=== PATIENT | female | born 1970 | race Caucasian/White ===

== ENCOUNTER 2023-06-17 16:53 | Emergency (ER) | payer BC, SELFPAY ==
[2023-06-17 17:02] VITALS: BP 126/84; PULSE 80; RESP 16; TEMP 36; O2SAT 99; BMI 29.1
--- NOTE | 2023-06-17 17:26 | ED_ITS ---
HPI - General Adult General Date Seen: 06/17/23 Chief complaint: Fall/Minor Trauma Stated complaint: Fell, jaw bruising Time Seen by Provider: 06/17/23 17:25 History of Present Illness HPI narrative: 52-year-old female presenting to the ER today for jaw pain and facial injuries. She actually fell while sitting in a chair 4 days ago, last Friday. She was sitting on some steps when she got up to turn when she lost her balance. She fell forward and hit her chin against the concrete on the steps. She has had bruising under her chin a little bit of bruising in her mouth. Since the fall she feels like her teeth have been lining up differently than normal and has pain in her left jaw should he into her left ear. She has bruising on the underside of her chin. She does not take any blood thinners. She has no other injuries. She not did not injure her neck. No headache. No blurry vision. She has had persistent pain, in particular in her left TMJ in front of her ear. No diffuse headache. No confusion. No vomiting. No neck pain. She does not t avni any blood thinners Related Data Home Medications Medication Instructions Recorded Confirmed No Known Home Medications 06/17/23 06/17/23 Allergies Allergy/AdvReac Type Severity Reaction Status Date / Time Sulfa (Sulfonamide Allergy Hives Verified 06/17/23 17:08 Antibiotics) [facility] Social History Smoking Status: Current every day smoker Exam Narrative: Exam Narrative: Constitutional: Appears well-developed and well-nourished. Alert. Conversant. Non toxic. HENT: Head: No depressed skull fracture, Raccoon Eyes, Knapp's sign, or hemotympanum. Face normal. TMs normal. Nose: Nose normal. Mouth/Throat: Oral mucosa is clear and moist. no trismus. Pharynx normal. Tonsils symmetric. No tonsillar enlargement, erythema, or exudate. No obvious dental malocclusion. No intraoral lacerations. No intraoral bruising. She does have bruising on the left mentum and left lateral mandibular body. No definite deformity or crepitus. She is tender over the left mandibular condyle and TMJ without crepitus. She has pain increased by opening her jaw. Right ear: Mastoid, pinna, canal are normal. TM normal Left ear: Mastoid, pinna, canal, are normal. TM normal Eyes: Conjunctivae normal. EOM normal. Pupils equal, round, and reactive to light. No scleral icterus. Neck: Normal range of motion. Neck supple. No tracheal deviation present. No posterior midline tenderness. Cardiovascular: Normal rate, regular rhythm. No gallop. No friction rub. No murmur heard. Symmetric radial artery pulses Pulmonary/Chest: Effort normal. No stridor. No respiratory distress. No wheezes. No rales. No rhonchi . Musculoskeletal: RUE: Normal range of motion. No tenderness. No deformity LUE: Normal range of motion. No tenderness. No deformity RLE: Normal range of motion. No edema. No tenderness. No deformity LLE: Normal range of motion. No edema. No tenderness. No deformity Lymph: No cervical adenopathy. Neurological: Mental status normal. Attention normal. Alert and oriented x3. GCS 15. Memory normal. Speech fluent. Cognition normal. Cranial Nerves intact II-XII except I did not formally test gag or visual acuity. EOMI. Palate elevates symmetrically and tongue protrudes in the midline. Strength: 5/5 trapezius on the right and left 5/5 deltoid on the right and left 5/5 biceps on the right and left 5/5 triceps on the right and left 5/5 manager risk on the right and left 5/5 thumb opposition on the right and le ft 5/5 finger abduction on the right and le ft 5/5 hip flexors (L3) on the right and le ft 5/5 quadriceps (L4) on the right and lef t 5/5 tibialis anterior on the right and l eft 5/5 EHL (L5) on the right and left 5/5 gastrocnemius (S1) on the right and left 5/5 hamstring on the right and left Sensation intact to light touch in both upper extremities (C4-T1) Sensation intact to light touch in Both lower extremities (L4-S1). coordination normal. Gait normal. Skin: Skin is warm and dry. No rash noted. No pallor. Normal capillary refill. Psychiatric: Normal mood. Normal affect. Const: Vital Signs, click to edit/add: Vital Signs - 24 hr 06/17/23 17:02 Temperature 96.8 F L Pulse Rate [Pulse Oximeter] 80 Respiratory Rate 16 Blood Pressure [Ri ght Upper Arm] 126/84 Pulse Oximetry 99 Oxygen Delivery Me thod Room Air Course Vital Signs Vital signs: Initial Vital Signs Temperature 96.8 F L 06/17/23 17:02 Temperature Source Temporal Artery Scan 06/17/23 17:02 Pulse Rate 80 06/17/23 17:02 Pulse Rhythm Regular 06/17/23 17:02 Pulse Strength 3+ Normal 06/17/23 17:02 Respiratory Rate 16 06/17/23 17:02 Blood Pressure 126/84 06/17/23 17:02 Blood Pressure Mean 98 06/17/23 17:02 Blood Pressure Position Sitting 06/17/23 17:02 Pulse Oximetry 99 06/17/23 17:02 Oxygen Delivery Method Room Air 06/17/23 17:02 Vital Signs Temperature 96.8 F L 06/17/23 17:02 Pulse Rate 80 06/17/23 17:02 Respiratory Rate 16 06/17/23 17:02 Blood Pressure 126/84 06/17/23 17:02 Pulse Oximetry 99 06/17/23 17:02 Oxygen Delivery Method Room Air 06/17/23 17:02 Temperature 96.8 F L 06/17/23 17:02 Pulse Rate 80 06/17/23 17:02 Respiratory Rate 16 06/17/23 17:02 Blood Pressure 126/84 06/17/23 17:02 Pulse Oximetry 99 06/17/23 17:02 Oxygen Delivery Method Room Air 06/17/23 17:02 Medical Decision Making MDM Narrative Medical decision making narrative: Very pleasant 52-year-old female presenting to the ER today for lower jaw pain and left TMJ pain ongoing for 4 days after a mechanical ground level fall. Patient denies any concern for assault or abuse. With blunt trauma to the head we did obtain head CT which is fortunately negative for any sign of intracranial hemorrhage, cerebral edema, mass effect. She is otherwise neurologically intact. Main concern was for possible facial and mandibular and TMJ injury such as mandibular fracture, TMJ subluxation, temporal bone fracture. Maxillofacial CT is obtained fortunately is negative for any acute abnormality. At this point the exact cause of her pain is unclear. Suspect probably due to TMJ trauma and subluxation that occurred at the time of injury. She feels like her back teeth are slightly male occluding. I would recommend close outpatient follow-up with her dentist for further evaluation. At this point no evidence for any fracture of the mandible on the CT. Patient her are comfortable plan for discharge. Recommended ice, soft diet, [id number] analgesics as needed. Precautions for return to the ER reviewed and need for dental and primary care follow-up reviewed. Patient agreeable to plan. Imaging Data CT facial bones: Attestation: I have reviewed the pertinent imaging results. Radiologist's impression: IMPRESSION: 1. No acute fracture. 2. Mucosal thickening in the maxillary sinuses. 3. Minimal right mastoid effusion. CT scan - head: Attestation: I have reviewed the pertinent imaging results. Radiologist's impression: IMPRESSION: No acute intracranial findings. Discharge Plan Discharge Clinical Impression: Arthralgia of left temporomandibular joint, Jaw pain Patient Disposition: Home, Self-Care Condition: Stable Instructions: Facial Contusion (ED) Additional Instructions: We have good news. At this time your CT scans do not show any signs of broken bone, jaw dislocation, or dental fracture. I suspect your pain is probably due to an injury to your temporomandibular joint. For now we can treat this by sticking to clear liquids and very soft foods. Years Tylenol or ibuprofen if needed for pain. Please follow-up with your dentist to recheck your injured teeth within the next 5-7 days. If you have worsening pain or swelling in your face, or any concerns, please come back to the ER or see your doctor right away. Prescriptions: No Action No Known Home Medications Follow Up/Referrals: Candi Downing PA-C [Primary Care Provider] - Stand Alone Forms: [facility] [employer] Info Instructions
--- NOTE | 2023-06-17 17:43 | CT_ITS ---
Patient: TILA RODRIGUEZ Facility:?[facility] Patient ID:?[id number] Site Patient ID:?[id number]. Site :?[id number] Study:?CT-Facial WO-06/17/2023 6:33:15 PM Ordering Physician:LULU Final Report: INDICATION: Fall, blunt force, jaw pain. COMPARISON: None. TECHNIQUE: CT of the facial bones without IV contrast. Coronal and sagittal reconstructions. FINDINGS: No acute fracture identified. No significant soft tissue swelling. Mucosal thickening in the inferior aspect of both maxillary sinuses. The remainder of the paranasal sinuses are clear. No air-fluid levels. No bony hyperostosis or areas of bone destruction. The nasal septum is midline. Opacification of a few right inferior mastoid air cells. The left mastoid air cells are clear. The mandible is intact and the temporomandibular joints are anatomically aligned. No periapical lucencies about the teeth. Visualized intracranial contents are unremarkable. Orbits and extraocular muscles are symmetric. The imaged cervical spine is negative. IMPRESSION: 1. No acute fracture. 2. Mucosal thickening in the maxillary sinuses. 3. Minimal right mastoid effusion. Please note that all CT scans at this facility use dose modulation, iterative reconstruction, and/or weight-based dosing when appropriate to reduce radiation dose to as low as reasonably achievable. Dictated by Aleena Zhang MD @ 06/17/2023 7:04:39 PM Signed by:?Aleena Zhang MD @06/17/2023 7:04:39 PM (Electronic Signature)
--- NOTE | 2023-06-17 17:43 | CT_ITS ---
Patient: TILA RODRIGUEZ Facility:?[facility] Patient ID:?[id number] Site Patient ID:?[id number]. Site :?[id number] Study:?CT-Head WO-06/17/2023 6:32:40 PM Ordering Physician:LULU Final Report: INDICATION: Fall, blunt force, jaw pain. COMPARISON: None. TECHNIQUE: CT of the head without IV contrast. Coronal and sagittal reconstructions. FINDINGS: No intracranial hemorrhage, mass effect, or evidence of acute infarct. No midline shift. No abnormal extra-axial fluid collections. Normal caliber ventricular system. Orbits and extraocular muscles are symmetric. The visualized paranasal sinuses and left mastoid air cells are clear. Opacification of a few right inferior mastoid air cells. Soft tissues are unremarkable. No acute fracture identified. IMPRESSION: No acute intracranial findings. Please note that all CT scans at this facility use dose modulation, iterative reconstruction, and/or weight-based dosing when appropriate to reduce radiation dose to as low as reasonably achievable. Dictated by Aleena Zhang MD @ 06/17/2023 6:59:27 PM Signed by:?Aleena Zhang MD @06/17/2023 6:59:27 PM (Electronic Signature)
== END 2023-06-17 19:51 | disposition home or self-care (01) ==
PROVIDERS: Emergency Provider Emergency Medicine; PCP Physician Assistant Medical
DX: M26.622 Arthralgia of left temporomandibular joint (principal)
CPT/HCPCS: 70450; 70486; 99283; 99285

== ENCOUNTER 2023-06-24 21:48 | Emergency (ER) | payer BC, SELFPAY ==
[2023-06-24 21:59] VITALS: BP 139/103; PULSE 70; RESP 16; TEMP 36.3; O2SAT 95
--- NOTE | 2023-06-24 22:35 | PC.NURSE ---
patient DC accompanied by , DC instructions reviewed with patient and . no further questions about DC instructions. all belongings sent with patient
--- NOTE | 2023-06-24 22:42 | ED.DENTAL ---
HPI - Dental/Oral General Date Seen: 06/24/23 Chief complaint: Dental/Oral/Mouth Injury/Pain Stated complaint: Dental Pain -needs stronger pain medication Time Seen by Provider: 06/24/23 22:07 Source: patient Mode of arrival: ambulatory Limitations: no limitations History of Present Illness HPI Narrative: Patient is a 52-year-old female who began having pain in a right upper molar last night. Today she went to the dentist and was diagnosed with a fracture of the tooth and a root canal was recommended. She has an appointment with an account general manager but that one happen for two weeks. She has been taking Tylenol and ibuprofen but in very small doses. The pain is severe to the point where she is unable to sleep. Related Data Previous Rx's Medication Instructions Recorded oxycodone 5 mg tablet 2.5 - 5 mg (0.5 - 1 x 5 mg) PO Q6H 06/24/23 PRN pain #10 tabs Allergies Allergy/AdvReac Type Severity Reaction Status Date / Time Sulfa (Sulfonamide Allergy Hives Verified 06/17/23 17:08 Antibiotics) Review of Systems Narrative: Review of systems is outlined above otherwise noted to be negative. PFSH PFSH Social History Smoking Status: Current every day smoker Non-prescribed substance use: denies use Exam Narrative: Exam Narrative: Vitals noted. Her teeth are generally in fairly good repair. She has a crack of her upper posterior right back molar. No mood gingival swelling or redness. No purulence. No other teeth they are tender to percussion. Const: Vital Signs, click to edit/add: Vital Signs - 24 hr 06/24/23 21:59 Temperature 97.3 F L Pulse Rate [Pulse Oximeter] 70 Respiratory Rate 16 Blood Pressure [Ri ght Upper Arm] 139/103 H Pulse Oximetry 95 Oxygen Delivery Me thod Room Air Course Course ED Course: Patient seen examined. We discussed proper doses of Tylenol and ibuprofen for adults, she was taking in adequate doses. A few tablets of oxycodone is sent to the [employer] machine. Vital Signs Vital signs: Initial Vital Signs Temperature 97.3 F L 06/24/23 21:59 Temperature Source Temporal Artery Scan 06/24/23 21:59 Pulse Rate 70 06/24/23 21:59 Respiratory Rate 16 06/24/23 21:59 Blood Pressure 139/103 H 06/24/23 21:59 Blood Pressure Mean 115 H 06/24/23 21:59 Blood Pressure Position Sitting 06/24/23 21:59 Pulse Oximetry 95 06/24/23 21:59 Oxygen Delivery Method Room Air 06/24/23 21:59 Vital Signs Temperature 97.3 F L 06/24/23 21:59 Pulse Rate 70 06/24/23 21:59 Respiratory Rate 16 06/24/23 21:59 Blood Pressure 139/103 H 06/24/23 21:59 Pulse Oximetry 95 06/24/23 21:59 Oxygen Delivery Method Room Air 06/24/23 21:59 Temperature 97.3 F L 06/24/23 21:59 Pulse Rate 70 06/24/23 21:59 Respiratory Rate 16 06/24/23 21:59 Blood Pressure 139/103 H 06/24/23 21:59 Pulse Oximetry 95 06/24/23 21:59 Oxygen Delivery Method Room Air 06/24/23 21:59 Discharge Plan Discharge Clinical Impression: Fracture of tooth Patient Disposition: Home, Self-Care Condition: Unchanged Additional Instructions: Tylenol 1000 mg every 6 hours as needed for pain. Ibuprofen 800 mg every 8 hours as needed for pain. Oxycodone 2.5-5 mg every 6 hours as needed for refractory pain. Follow-up with the Cnc Applications Engineer as scheduled. Prescriptions: New oxycodone 5 mg tablet 2.5 - 5 mg PO Q6H PRN (Reason: pain) Qty: 10 0RF Follow Up/Referrals: Candi Downing PA-C [Primary Care Provider] - Stand Alone Forms: [facility] Info Instructions
== END 2023-06-24 22:34 | disposition home or self-care (01) ==
LOC: ED 22:26
PROVIDERS: Emergency Provider Family Medicine; PCP Physician Assistant Medical
DX: S02.5XXA Fracture of tooth (traumatic), initial encounter for closed fracture (principal)
CPT/HCPCS: 99281; 99282; 99283

== ENCOUNTER 2023-10-14 06:50 | Outpatient (CLI) | payer BC, SELFPAY | END 2023-10-14 06:51 | disposition home or self-care (01) | LOC: INJ CL 06:50 | PROVIDERS: PCP Physician Assistant Medical; Visit Provider Family Medicine | DX: M47.816 Spondylosis without myelopathy or radiculopathy, lumbar region (principal) | CPT/HCPCS: 64493; 64494; J0702; Q9966 ==

== ENCOUNTER 2024-01-02 17:09 | Emergency (ER) | payer BC, SELFPAY ==
[2024-01-02 17:20] VITALS: BP 130/87; PULSE 92; RESP 18; TEMP 36.2; O2SAT 98; BMI 30.6
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
== END 2024-01-02 19:32 | disposition home or self-care (01) ==
PROVIDERS: Emergency Provider Student in an Organized Health Care Education/Training Program; PCP Physician Assistant Medical
DX: S63.502A Unspecified sprain of left wrist, initial encounter (principal); V29.39XA Other motorcycle (driver) (passenger) injured in unspecified nontraffic accident, initial encounter
CPT/HCPCS: 73110; 99282; 99283